=== PATIENT | male | born 1975 | race Caucasian/White ===

== ENCOUNTER 2016-05-25 02:19 | Emergency (ER) | payer SELFPAY ==
[2016-05-25 02:56] LABS: BASO % 0.3 % (0-6); EOS % 2.6 % (0-6); GRAN % 56.2 % (47-80); HEMATOCRIT 46.6 % (42.0-52.0); HEMOGLOBIN 15.6 gm/dl (14.0-18.0); LYMPH % 30.7 % (16-45); MEAN CELL VOLUME 90.8 fl (81-97); MEAN CORPUSCULAR HEMOGLOBIN 30.4 pg (27-33); MEAN CORPUSCULAR HGB CONC 33.5 g/dl (32-36); MEAN PLATELET VOLUME 8.8 fl (7.4-10.4); MONO % 10.2 % (0-9); PLATELET COUNT 269 K/uL (130-400); RED BLOOD COUNT 5.13 M/uL (4.40-5.70); RED CELL DISTRIBUTION WIDTH 12.3 % (11.5-14.5); WHITE BLOOD COUNT W/O DIFF 9.4 K/uL (4.2-12.2)
[2016-05-25 03:07] LABS: ANION GAP 9.6 (7-16); BLOOD UREA NITROGEN 16 mg/dL (9-20); CARBON DIOXIDE 30.4 mmol/L (22-30); CREATININE 1.1 mg/dL (0.66-1.25); EST GLOMERULAR FILTRATION RATE > 60 ml/min; GLUCOSE,RANDOM 104 mg/dL (70-110)
[2016-05-25] MEDS ORDERED: CLINDAMYCIN 600MG/50ML PREMIX 600 MG in DEXTROSE 1 BAG IV ONE (03:53)
--- NOTE | 2016-05-25 04:05 | Emergency Department Record ---
History of Present Illness - General Chief complaint: Pain Stated complaint: LUMP NEAR GROIN Time Seen by Provider: 05/25/16 02:35 Source: Patient Mode of Arrival: Ambulatory Limitations: No limitations - History of Present Illness Initial comments: pt has had swelling and pain in his right groin. MD Complaint: Other Onset/Timin -: Days(s) Location: Right, Other History of Same: Yes Severity scale (1-10): 7 Quality: Aching Consistency: Constant, Getting worse - Related Data Allergies Allergy/AdvReac Type Severity Reaction Status Date / Time No Known Drug Allergies Allergy Verified 11/04/13 07:42 Travel Screening - Travel/Exposure Within Last 30 Days Have you traveled within the last 30 days?: No Review of Systems Reviewed: No additional complaints except as noted below Constitutional: Reports: As per HPI. Denies: Chills, Fever, Malaise, Night sweats, Weakness, Weight change Eyes: Reports: As per HPI. Denies: Eye discharge, Eye pain, Photophobia, Vision change ENT: Reports: As per HPI. Denies: Congestion, Dental pain, Ear pain, Epistaxis , Hearing loss, Throat pain Respiratory: Reports: As per HPI. Denies: Cough, Dyspnea, Hemoptysis, Stridor, Wheezes Cardiovascular: Reports: As per HPI. Denies: Arrhythmia, Chest pain, Dyspnea on exertion, Edema, Murmurs, Orthopnea, Palpitations, Paroxysmal nocturnal dyspnea, Rheumatic Fever, Syncope Endocrine: Reports: As per HPI. Denies: Fatigue, Heat or cold intolerance, Polydipsia, Polyuria Gastrointestinal: Reports: As per HPI. Denies: Abdominal pain, Constipation, Diarrhea, Hematemesis, Hematochezia, Melena, Nausea, Vomiting Genitourinary: Reports: As per HPI. Denies: Dysuria, Frequency, Hematuria, Incontinence, Retention, Testicular pain, Testicular mass, Urgency Musculoskeletal: Reports: As per HPI. Denies: Arthralgia, Back pain, Gout, Joint swelling, Myalgia, Neck pain Skin: Reports: As per HPI. Denies: Bruising, Change in color, Change in hair/ nails, Lesions, Pruritus, Rash Neurological: Reports: As per HPI. Denies: Abnormal gait, Confusion, Headache, Numbness, Paresthesias, Seizure, Tingling, Tremors, Vertigo, Weakness Psychiatric: Reports: As per HPI. Denies: Anxiety, Auditory hallucinations, Depression, Homicidal thoughts, Suicidal thoughts, Visual hallucinations Hematological/Lymphatic: Reports: As per HPI. Denies: Anemia, Blood Clots, Easy bleeding, Easy bruising, Swollen glands Past Medical History - SOCIAL HISTORY Smoking Status: Current every day smoker Alcohol Use: None Drug Use: None - RESPIRATORY Hx Respiratory Disorders: No - CARDIOVASCULAR Hx Cardio Disorders: No - NEURO Hx Neuro Disorders: No - GI Hx GI Disorders: No - Hx Genitourinary Disorders: No - ENDOCRINE Hx Endocrine Disorders: No - MUSCULOSKELETAL Hx Musculoskeletal Disorders: No - PSYCH Hx Psych Problems: No - HEMATOLOGY/ONCOLOGY Hx Hematology/Oncology Disorders: No Family Medical History Any Significant Family History?: Yes Hx Cancer: Father, Mother Hx Dementia: Father Hx Resp Disorders: Father Physical Exam - General General Appearance: Alert, Oriented x3, Cooperative, Mild distress - Head Head exam: Normal inspection - Eye Eye exam: Normal appearance, PERRL, EOMI Pupils: Normal accommodation - ENT ENT exam: Normal exam, Mucous membranes moist, Normal external ear exam, Normal orophraynx, TM's normal bilaterally Ear exam: Normal external inspection. negative: External canal tenderness Nasal Exam: Normal inspection. negative: Discharge, Sinus tenderness Mouth exam: Normal external inspection, Tongue normal Teeth exam: Normal inspection. negative: Dental caries Throat exam: Normal inspection. negative: Tonsillar erythema, Tonsillar exudate - Neck Neck exam: Normal inspection, Full ROM. negative: Tenderness - Respiratory Respiratory exam: Normal lung sounds bilaterally. negative: Respiratory distress - Cardiovascular Cardiovascular Exam: Regular rate, Normal rhythm, Normal heart sounds - GI/Abdominal GI/Abdominal exam: Soft, Normal bowel sounds - Rectal Rectal exam: Deferred - exam: Scrotal swelling, Testicular tenderness, Other (erythematous) - Extremities Extremities exam: Normal inspection, Full ROM, Normal capillary refill. negative: Tenderness - Back Back exam: Reports: Normal inspection, Full ROM. Denies: Muscle spasm, Rash noted, Tenderness - Neurological Neurological exam: Alert, CN II-XII intact, Normal gait, Oriented X3 - Psychiatric Psychiatric exam: Normal affect, Normal mood - Skin Skin exam: Dry, Intact, Normal color, Warm Course Vital Signs 05/25/16 02:24 Temperature 98.2 F Pulse Rate [ 79 Pulse Ox Probe] Respiratory 24 Rate Blood Pressure 117/75 [Left Arm] Pulse Ox 98 - Reevaluation(s) Reevaluation #1: 05/25/16 04:13 d/w dr fry who requested i call urology. attempted to reach dr osorio urology who [facility] to talk [facility] one call that i must transfer the pt to the ED at [facility] if i I wanted him to see pt. Medical Decision Making - Lab Data Result diagrams: 05/25/16 02:48 05/25/16 02:48 Lab Results 05/25/16 05/25/16 Range/Units 02:48 02:48 WBC 9.4 (4.2-12.2) K/uL RBC 5.13 (4.40-5.70) M/uL Hgb 15.6 (14.0-18.0) gm/dl Hct 46.6 (42.0-52.0) % MCV 90.8 (81-97) fl MCH 30.4 (27-33) pg MCHC 33.5 (32-36) g/dl RDW 12.3 (11.5-14.5) % Plt Count 269 (130-400) K/uL MPV 8.8 (7.4-10.4) fl Gran % 56.2 (47-80) % Lymphocytes % 30.7 (16-45) % Monocytes % 10.2 H (0-9) % Eosinophils % 2.6 (0-6) % Basophils % 0.3 (0-6) % Sodium 140 (136-145) mmol/L Potassium 4.2 (3.5-5.1) mmol/L Chloride 100 (98-107) mmol/L Carbon Dioxide 30.4 H (22-30) mmol/L Anion Gap 9.6 (7-16) BUN 16 (9-20) mg/dL Creatinine 1.1 (0.66-1.25) mg/dL Estimated GFR > 60 ml/min Random Glucose 104 (70-110) mg/dL Calcium 9.4 (8.5-10.1) mg/dL Disposition Disposition: Transfer Clinical Impression: Scrotal mass, Scrotal abscess Disposition: Acute Care Hospital Transfer Transfer To: [facility] Reason For Transfer: needs urology Accepting Physician: dr elise Time Discussed w/Accepting Physician: 04:13 Forms: Patient Portal Access
--- NOTE | 2016-05-26 14:43 | CT SCAN REPORT ---
EXAM: CT OF THE PELVIS WITH CONTRAST HISTORY: RIGHT GROIN MASS. TECHNIQUE: Sequential axial images were obtained through the pelvis after intravenous administration of 100 ml of Omnipaque 300 contrast material. Sagittal and coronal reformatted images were performed. FINDINGS: The small and large bowel appears unremarkable. The urinary bladder appears normal. The prostate gland appears normal. There are mildly prominent lymph nodes in the inguinal region. These measure a maximum short axis diameter of 8 mm. These are at the upper limits of normal. No cystic or solid lesions are appreciated. No drainable abscess. There is a 2.4 cm x 3.1 cm fluid collection in the right scrotal sac. Further evaluation with ultrasound is recommended. IMPRESSION: 3.1 CM X 2.4 CM FLUID COLLECTION IN THE SUPERIOR RIGHT SCROTUM. THERE ARE REACTIVE LYMPH NODES IN THE INGUINAL REGION. FURTHER EVALUATION WITH ULTRASOUND IS RECOMMENDED. THIS MAY REPRESENT AN EPIDIDYMAL CYST, HOWEVER, ABSCESS CANNOT BE ENTIRELY EXCLUDED. JOB NUMBER: [id number] MTDD
== END 2016-05-25 05:13 | disposition short-term general hospital (02) ==
LOC: ER 02:19
DX: N49.2 Inflammatory disorders of scrotum (principal); N50.9 Disorder of male genital organs, unspecified
CPT/HCPCS: 99285 ×2; 96374; 85025; 80048; 72193; Q9967

== ENCOUNTER 2019-02-18 09:43 | Emergency (ER) | payer SELFPAY ==
[2019-02-18 10:41] LABS: ABSOLUTE NEUTROPHIL COUNT 8.58; BASO % 0.2 % (0-6); EOS % 0.8 % (0-6); HEMATOCRIT 45.4 % (42.0-52.0); HEMOGLOBIN 14.9 gm/dl (14.0-18.0); LYMPH % 12.9 % (16-45); MEAN CELL VOLUME 90.6 fl (81-97); MEAN CORPUSCULAR HEMOGLOBIN 29.7 pg (27-33); MEAN CORPUSCULAR HGB CONC 32.8 g/dl (32-36); MEAN PLATELET VOLUME 8.6 fl (7.4-10.4); MONO % 9.1 % (0-9); PLATELET COUNT 233 K/uL (130-400); RED BLOOD COUNT 5.01 M/uL (4.40-5.70); RED CELL DISTRIBUTION WIDTH 12.7 % (11.5-14.5); WHITE BLOOD COUNT W/O DIFF 11.1 K/uL (4.2-12.2)
[2019-02-18 10:52] LABS: BLOOD UREA NITROGEN 13 mg/dL (6-20); CREATININE 0.9 mg/dL (0.7-1.2); EST GLOMERULAR FILTRATION RATE > 60 mL/min
[2019-02-18 10:55] LABS: GLUCOSE,RANDOM 102 mg/dL (74-109)
--- NOTE | 2019-02-18 11:57 | CT SCAN REPORT ---
EXAMINATION: CT of the Pelvis with Intravenous Contrast. EXAM DATE: 02/18/2019 11:28 AM TECHNIQUE: A standard CT pelvis protocol was performed with intravenous contrast. Sagittal and garza l images were reconstructed. IV Contrast: The type and amount of contrast is recorded within the medical record. INDICATION: abscess COMPARISON: CT pelvis 05/25/2016 all ENCOUNTER: Not applicable FINDINGS: Thick-walled ring-enhancing fluid collection, 2.8 x 1.6 x 3.1 cm, in the medial left gluteal fold may be communicating with the anus at the 5:30 position. There was soft tissue thickening in this region on previous CT scan, so this may be recurrent problem. Previously seen right groin fluid collection has not recurred. The right groin adenopathy has improve d. No intrapelvic abnormalities. No significant bone abnormalities, there is moderate degenerative ch bonnie at L5-S1. IMPRESSION: 2.8 x 1.6 x 3.6 cm left perianal abscess in the medial left gluteal fold. Dictated by: Caprice Peña MD on 02/18/2019 11:51 AM. .
--- NOTE | 2019-02-18 13:43 | Emergency Department Record ---
History of Present Illness - General Chief complaint: Abscess Stated complaint: BUMP ON BUTT Time Seen by Provider: 02/18/19 10:20 Source: Patient Mode of Arrival: Ambulatory Limitations: No limitations - History of Present Illness Initial comments: pt has a tender area near his rectum that he thinks is an abscess. he had one 9 years ago that had to be drained complaint: Abscess/boil Onset/Timin -: Days(s) Hx Tetanus Toxoid Vaccination: Yes (states a couple years ago.) Location: Buttocks Improves with: None Worsens with: Palpation, Movement Treatments Prior to Arrival: Other - Related Data Home Medications Medication Instructions Recorded Confirmed Last Taken No Home Med [NO HOME MEDS] 02/18/19 02/18/19 Unknown Allergies Allergy/AdvReac Type Severity Reaction Status Date / Time No Known Drug Allergies Allergy Verified 02/18/19 09:54 Travel Screening - Travel/Exposure Within Last 30 Days Have you traveled within the last 30 days?: No - Travel/Exposure Within Last Year Have you traveled outside the [place] in the last year?: No - Additonal Travel Details Have you been exposed to anyone with a communicable illness?: No - Travel Symptoms Symptom Screening: None Review of Systems Reviewed: No additional complaints except as noted below Constitutional: Reports: As per HPI. Denies: Chills, Fever, Malaise, Night sweats, Weakness, Weight change Eyes: Reports: As per HPI. Denies: Eye discharge, Eye pain, Photophobia, Vision change ENT: Reports: As per HPI. Denies: Congestion, Dental pain, Ear pain, Epistaxis, Hearing loss, Throat pain Respiratory: Reports: As per HPI. Denies: Cough, Dyspnea, Hemoptysis, Stridor, Wheezes Cardiovascular: Reports: As per HPI. Denies: Arrhythmia, Chest pain, Dyspnea on exertion, Edema, Murmurs, Orthopnea, Palpitations, Paroxysmal nocturnal dyspnea, Rheumatic Fever, Syncope Endocrine: Reports: As per HPI. Denies: Fatigue, Heat or cold intolerance, Polydipsia, Polyuria Gastrointestinal: Reports: As per HPI. Denies: Abdominal pain, Constipation, Diarrhea, Hematemesis, Hematochezia, Melena, Nausea, Vomiting Genitourinary: Reports: As per HPI. Denies: Dysuria, Frequency, Hematuria, Incontinence, Retention, Testicular pain, Testicular mass, Urgency Musculoskeletal: Reports: As per HPI. Denies: Arthralgia, Back pain, Gout, Joint swelling, Myalgia, Neck pain Skin: Reports: As per HPI. Denies: Bruising, Change in color, Change in hair/nails, Lesions, Pruritus, Rash Neurological: Reports: As per HPI. Denies: Abnormal gait, Confusion, Headache, Numbness, Paresthesias, Seizure, Tingling, Tremors, Vertigo, Weakness Psychiatric: Reports: As per HPI. Denies: Anxiety, Auditory hallucinations, Depression, Homicidal thoughts, Suicidal thoughts, Visual hallucinations Hematological/Lymphatic: Reports: As per HPI. Denies: Anemia, Blood Clots, Easy bleeding, Easy bruising, Swollen glands Past Medical History - SOCIAL HISTORY Smoking Status: Current every day smoker Alcohol Use: None Drug Use: Heavy Drug Use Detail:: Marijuana - RESPIRATORY Hx Respiratory Disorders: No - CARDIOVASCULAR Hx Cardio Disorders: No - NEURO Hx Neuro Disorders: No - GI Hx GI Disorders: No - Hx Genitourinary Disorders: No - ENDOCRINE Hx Endocrine Disorders: No - MUSCULOSKELETAL Hx Musculoskeletal Disorders: No - PSYCH Hx Psych Problems: No - HEMATOLOGY/ONCOLOGY Hx Hematology/Oncology Disorders: No Family Medical History Any Significant Family History?: No Hx Cancer: Father, Mother Hx Dementia: Father Hx Resp Disorders: Father Physical Exam - General General Appearance: Alert, Oriented x3, Cooperative, Mild distress - Head Head exam: Normal inspection - Eye Eye exam: Normal appearance, PERRL, EOMI Pupils: Normal accommodation - ENT ENT exam: Normal exam, Mucous membranes moist, Normal external ear exam, Normal orophraynx Ear exam: Normal external inspection. negative: External canal tenderness Nasal Exam: Normal inspection. negative: Discharge, Sinus tenderness Mouth exam: Normal external inspection, Tongue normal Teeth exam: Normal inspection. negative: Dental caries Throat exam: Normal inspection. negative: Tonsillar erythema, Tonsillar exudate - Neck Neck exam: Normal inspection, Full ROM. negative: Tenderness - Respiratory Respiratory exam: Normal lung sounds bilaterally. negative: Respiratory distress - Cardiovascular Cardiovascular Exam: Regular rate, Normal rhythm, Normal heart sounds - GI/Abdominal GI/Abdominal exam: Soft, Normal bowel sounds. negative: Tenderness - Rectal Rectal exam: Tenderness, Other (abscess near rectum) - exam: Deferred - Extremities Extremities exam: Normal inspection, Full ROM, Normal capillary refill. negative: Tenderness - Back Back exam: Reports: Normal inspection, Full ROM. Denies: Muscle spasm, Rash noted, Tenderness - Neurological Neurological exam: Alert, CN II-XII intact, Normal gait, Oriented X3 - Psychiatric Psychiatric exam: Normal affect, Normal mood - Skin Skin exam: Dry, Intact, Normal color, Warm Course Vital Signs 02/18/19 02/18/19 09:46 13:06 Temperature 97.8 F Pulse Rate 83 Pulse Rate [ 66 Pulse Ox Probe] Respiratory 16 16 Rate Blood Pressure 113/99 Blood Pressure 97/59 [Left Arm] Pulse Ox 98 97 - Reevaluation(s) Reevaluation #1: 02/18/19 13:45 cat scan shows perianal abscess with communication with the anus. pt was d/w dr fry who accepted the pt and was arranging transfer when pt became very angry that we wouldnt let him go out and smoke. he was offered a nicotine patch and ativan but he proceeded to rip out his iv. he was also mad that we didnt give him something to drink though it was explained to the pt that he was going to surgery and cant drink. he stomped out though nurse carlos and i both tried to calm him and explain to him. dr fry was notified 02/18/19 13:46 Medical Decision Making - Lab Data Result diagrams: 02/18/19 10:35 02/18/19 10:35 Lab Results 02/18/19 02/18/19 Range/Units 10:35 10:35 WBC 11.1 (4.2-12.2) K/uL RBC 5.01 (4.40-5.70) M/uL Hgb 14.9 (14.0-18.0) gm/dl Hct 45.4 (42.0-52.0) % MCV 90.6 (81-97) fl MCH 29.7 (27-33) pg MCHC 32.8 (32-36) g/dl RDW 12.7 (11.5-14.5) % Plt Count 233 (130-400) K/uL MPV 8.6 (7.4-10.4) fl Gran % 77.0 (47-80) % Lymphocytes % 12.9 L (16-45) % Monocytes % 9.1 H (0-9) % Eosinophils % 0.8 (0-6) % Basophils % 0.2 (0-6) % Absolute Neutrophils 8.58 Sodium 138 (136-145) mmol/L Potassium 4.4 (3.4-4.5) mmol/L Chloride 100 (98-107) mmol/L Carbon Dioxide 27.0 (22-29) mmol/L Anion Gap 11.0 (7-16) BUN 13 (6-20) mg/dL Creatinine 0.9 (0.7-1.2) mg/dL Estimated GFR > 60 mL/min Random Glucose 102 (74-109) mg/dL Calcium 9.8 (8.6-10.0) mg/dL Disposition Disposition: Other Clinical Impression: Perianal abscess Disposition: Against Medical Advice Quality - Quality Measures Quality Measures: N/A - Blood Pressure Screening Does Patient Have Any of the Following: No Blood Pressure Classification: Hypertensive Reading Systolic Measurement: 113 Diastolic Measurement: 99 Screening for High Blood Pressure: < Pre-Hypertensive BP, F/U Documented > [G8950] Pre-Hypertensive Follow-up Interventions: Follow-up with rescreen every year.
== END 2019-02-18 13:47 | disposition left against medical advice (07) ==
LOC: ER 09:43
DX: K61.0 Anal abscess (principal)
CPT/HCPCS: 72193; 80048; 85025; 99284